=== PATIENT | female | born 1995 | race Caucasian/White ===

== ENCOUNTER 2019-02-22 14:14 | Emergency (ER) | payer OTHER ==
[~2019-02-22] VITALS: Ht 165.1 cm; Wt 83.0 kg
[~2019-02-22 14:14] MED LIST: DOCU-131 PO; IBUP-1222 PO; IBUP200T49 PO; OXYC-302 PO; PREN-3 PO
[2019-02-22 14:17] VITALS: BP 120/79
== END 2019-02-22 16:40 | disposition home or self-care (01) ==
LOC: ED 15:35
DX: M79.662 Pain in left lower leg (principal)
CPT/HCPCS: 99284